=== PATIENT | male | born 1940 | race Caucasian/White ===

== ENCOUNTER 2017-05-07 07:11 | Emergency (ER) | payer MEDICARE, MEDICAID ==
[~2017-05-07] VITALS: Ht 157.5 cm; Wt 79.3 kg
[~2017-05-07 07:11] MED LIST: ADV50050 INHALATION; ALLO100T PO; ATOR40TA68 PO; CALC667C; COLC0.6T6 PO; FERR-49; LORA10CA; METO-319 PO; OLME1TAB37 PO; PANT40TA4 PO; PARI1CAP7; TAMS0.4C2 PO; ZALE5CAP PO
[2017-05-07 07:16] VITALS: Ht 157.5 cm; Wt 79.3 kg
--- NOTE | 2017-05-07 07:43 | ERD ---
ER Documentation Chief Complaint Chief Complaint reported melenas x 1 week, feels weak, due for dialysis today HPI This is a 76-year-old male with a past medical history of hypertension, hyperlipidemia, BPH, gout, GERD, anemia of chronic disease on iron pills chronically, end-stage renal disease on dialysis Saturday//Saturday who is presenting with new onset black stools and weakness for approximately 1 week. The patient reports that he is due for dialysis today, but he felt too weak to go this morning. The patient has had issues with anemia in the past. He reports that his hemoglobin has dropped to less than 5 in the past and has required transfusions. He did have a colonoscopy and EGD in the past several years ago that was reportedly negative for evaluation of his anemia. The patient does endorse mild congestion and a dry nonproductive cough. He thinks that it is just a cold. The patient denies fever or chills. The patient has had no headache or vision changes. The patient does not endorse neck or back pain. The patient denies lightheadedness or dizziness. The patient has had no chest pain or shortness of breath or trouble breathing. The patient denies nausea or vomiting. The patient denies abdominal pain or changes to bowel movements or urination. The patient has had no focal deficits. The patient has had no weakness or numbness or tingling to the face or extremities. ROS All systems reviewed and are negative except as per history of present illness. Medications Home Meds Reported Medications Multivit/Ca Carb/B Cmplx/Fa* (Lyly-Denisa*) 1 Tab Tab, 1 TAB PO DAILY, TAB 05/07/17 Trazodone Hcl* (Trazodone Hcl*) 50 Mg Tablet, 50 MG PO QHS, #30 TAB 05/07/17 Pantoprazole* (Pantoprazole*) 40 Mg Tablet.dr, 40 MG PO AC BREAKFAST, TAB 05/07/17 Colchicine* (Colcrys*) 0.6 Mg Tablet, 0.6 MG PO BID, TAB 05/07/17 Calcium Acetate* (Calcium Acetate*) 667 Mg Capsule, 667 MG PO WITH MEALS, #30 CAP 05/07/17 Clonazepam* (Clonazepam*) 0.5 Mg Tablet, 0.5 MG PO QHS, TAB 05/07/17 Metoprolol Succinate* (Toprol XL*) 50 Mg Tab.er.24h, 50 MG PO DAILY, #30 TAB 03/05/16 Cmwpqrfiok-Imurhvgcyu-ECPA (Tribenzor) 40-10-25 Mg Tablet, 1 TAB PO DAILY, TAB 03/05/16 Atorvastatin* (Atorvastatin*) 40 Mg Tablet, 40 MG PO QHS, #30 TAB 03/05/16 Tamsulosin Hcl* (Tamsulosin Hcl*) 0.4 Mg Cap.er.24h, 0.4 MG PO DAILY 09/18/13 Ferrous Sulfate* (Feosol*) 1 Tab Tablet, BID 09/18/13 Discontinued Reported Medications Salmeterol Xinaf-Fluticasone* (Advair*) 500/50 Diskus Inhaler, 1 INH INHALATION BID, #1 INHALER 03/05/16 Loratadine* (Claritin*) 10 Mg Capsule, PRN 09/18/13 Zaleplon (Zaleplon) 5 Mg Capsule, 5 PO QHS 09/18/13 Paricalcitol* (Zemplar*) 1 Mcg Cap, DAILY 09/18/13 Discontinued Scripts Pantoprazole* (Pantoprazole*) 40 Mg Tablet.dr, 40 MG PO BID for 30 Days, 3 Refills Prov:LEO TRIVEDI 03/09/16 Allopurinol* (Allopurinol*) 100 Mg Tablet, 100 MG PO DAILY for 30 Days, TAB 3 Refills Prov:LEO TRIVEDI 03/09/16 Colchicine* (Colcrys*) 0.6 Mg Tablet, 0.6 MG PO DAILY for 30 Days, TAB Prov:LEO TRIVEDI 03/09/16 Allergies Allergies: Coded Allergies: No Known Allergies (Verified Allergy, Unknown, 05/07/17) PMhx/Soc History of Surgery: No Anesthesia Reaction: No Hx Neurological Disorder: No Hx Respiratory Disorders: No Hx Cardiac Disorders: Yes (HTN, HLD) Hx Psychiatric Problems: No Hx Miscellaneous Medical Probl: Yes (CHRONIC ANEMIA, BPH, Gout, GERD, ESRD on HD) Hx Alcohol Use: No Hx Substance Use: No Hx Tobacco Use: No Smoking Status: Never smoker FmHx Family History: No coronary disease, No diabetes Physical Exam Vitals Vital Signs Date Time Temp Pulse Resp B/P Pulse Ox O2 Delivery O2 Flow Rate FiO2 05/07/17 08:57 73 19 131/52 99 Nasal Cannula 2.0 05/07/17 07:58 Nasal Cannula 2 05/07/17 07:16 97.9 75 18 136/75 98 Physical Exam Const: No apparent distress, well-developed, well-nourished Head: Normocephalic, Atraumatic Eyes: Normal Conjunctiva. Extraocular movements intact. Pupils equal, round and reactive to light ENT: Normal External Ears, Nose and Mouth. No conjunctival palor. Neck: Full range of motion. No meningismus. Resp: Clear to auscultation bilaterally, No wheezes, rales or rhonchi Cardio: Regular rate and rhythm. No murmurs, rubs or gallops Abd: Soft, non tender, non distended. Normal bowel sounds Rectal: Fish Filleter was present at all times during this physical exam. Dark brown stool. External Hemorrhoids. Skin: No petechiae or rashes. No palor. Back: No midline tenderness. No CVA tenderness Ext: No cyanosis, or edema Neur: Awake and alert, oriented 4. Cranial nerves intact. No facial droop. Normal strength, sensation and coordination. Psych: Normal Mood and Affect Result Diagram: 05/07/17 0757 05/07/17 0757 Results 24 hrs Laboratory Tests Test 05/07/17 07:57 05/07/17 08:30 White Blood Count 9.410^3/ul Red Blood Count 2.7110^6/ul Hemoglobin 8.1g/dl Hematocrit 26.1% Mean Corpuscular Volume 96.3fl Mean Corpuscular Hemoglobin 29.9pg Mean Corpuscular Hemoglobin Concent 31.0g/dl Red Cell Distribution Width 15.6% Platelet Count 79302^3/UL Mean Platelet Volume 10.5fl Neutrophils % 80.9% Lymphocytes % 11.1% Monocytes % 6.8% Eosinophils % 0.5% Basophils % 0.2% Nucleated Red Blood Cells % 0.0/100WBC Neutrophils # 7.610^3/ul Lymphocytes # 1.110^3/ul Monocytes # 0.610^3/ul Eosinophils # 0.110^3/ul Basophils # 0.010^3/ul Nucleated Red Blood Cells # 0.010^3/ul Prothrombin Time 14.1Sec Prothrombin Time Ratio 1.1 INR International Normalized Ratio 1.08 Activated Partial Thromboplast Time 49.6Sec Sodium Level 142mmol/L Potassium Level 5.7mmol/L Chloride Level 103mmol/L Carbon Dioxide Level 20mmol/L Anion Gap 25 Blood Urea Nitrogen 102mg/dl Creatinine 8.24mg/dl Glucose Level 112mg/dl Calcium Level 9.2mg/dl Total Bilirubin 0.2mg/dl Direct Bilirubin 0.00mg/dl Indirect Bilirubin 0.2mg/dl Aspartate Amino Transf (AST/SGOT) 26IU/L Alanine Aminotransferase (ALT/SGPT) 40IU/L Alkaline Phosphatase 159IU/L Troponin I 0.068ng/ml Total Protein 7.6g/dl Albumin 4.2g/dl Globulin 3.40g/dl Albumin/Globulin Ratio 1.23 Stool Occult Blood NEGATIVE Procedures/MDM MDM The patient's presentation warrants further investigation. The patient does have a history of anemia, and this will be checked. He does have symptoms consistent with an upper respiratory infection. Given the patient's end-stage renal disease, metabolic abnormalities will also be evaluated for. The patient does not have symptoms consistent with acute coronary syndrome. Patient does not have chest pain or shortness of breath. The patient does not have any medical findings concerning for pneumonia at this time. I do not feel that a chest x-ray is necessary at this time. LABS The patient's blood work was obtained and reviewed. The patient's CBC shows no leukocytosis. The patient is afebrile and does not appear systemically ill. I do not suspect a systemic infection. The patient has a normocytic anemia, likely anemia of chronic disease. The patient's hemoglobin today is 8.1. It was 8.4 when checked last week. This is not a significant difference. The patient's fecal occult blood test was negative. The patient's platelet count is unremarkable. The patient's CMP shows elevation in his BUN and creatinine. The patient is scheduled for dialysis today. His potassium is mildly elevated at 5.7. However, there are no findings on his EKG concerning for cardiac irritation. I am not concerned of hyperkalemia as the cause of his weakness. The patient has a mild metabolic acidosis, which does not need to be emergently treated. The patient's calcium is within normal limits, and I do not believe this is the cause of his symptoms today. The patient's troponin is within normal limits at 0.068. The patient's EKG does not show concerning signs of acute coronary syndrome. EKG EKG read by me: Rate/Rhythm: Regular rate and rhythm at a rate of 74 bpm Intervals: Normal [place]: Normal Impression: No evidence of ischemia or arrhythmia TREATMENT/DISPOSITION The patient's symptoms are consistent with a URI. That said, he does not have concerning an clinical findings for pneumonia. I have decreased suspicion for the flu. He is afebrile with unremarkable vital signs, which is reassuring. The patient's fatigue has been ongoing for approximately 1 week. Tamiflu would not be warranted in this situation. Even if the patient did have the flu, I would recommend symptomatic treatment. The patient's findings are not consistent with a GI bleed. The patient's fecal occult blood test is negative. The patient's hemoglobin is around where it was last week. The patient's stool is dark, but the patient does take iron. The patient does not have clinical findings of orthostasis. He does not have conjunctival pallor. He does not appear pale. This may be further evaluated as an outpatient. The patient does require dialysis today. His family called the dialysis center , who was able to reschedule him for later today. At this time, I feel that the patient stable for discharge. The patient will need follow-up with his primary care physician in 2-3 days. The patient will be given strict precautions with which to return to the emergency department. The patient's blood pressure was elevated at greater than 120/80 while in the emergency department. The patient was otherwise stable with no evidence of hypertensive urgency or emergency or end organ damage. The patient does not require admission for blood pressure control. I have discussed with the patient the risks of hypertension. I have advised the patient to follow up with the primary care physician for outpatient monitoring and treatment for hypertension in 2-3 days. I have instructed the patient to return to the ER for any new or worsening symptoms including chest pain, shortness of breath, headache, blurred vision, confusion, nausea, vomiting or LOC. Disclaimer: Inadvertent spelling and grammatical errors are likely due to EHR/ dictation software use and do not reflect on the overall quality of patient care. Note that the electronic time recorded on this note does not necessarily reflect the actual time of the patient encounter. Departure Diagnosis: Primary Impression: URI (upper respiratory infection) URI type: unspecified URI Qualified Code: J06.9 - Upper respiratory tract infection, unspecified type Additional Impressions: Anemia in chronic kidney disease Chronic kidney disease stage: on chronic dialysis Qualified Code: N18.6 - Anemia in chronic kidney disease, on chronic dialysis ESRD (end stage renal disease) Hyperkalemia Condition: IVORY Gonzales MD May 07, 2017 07:43
[2017-05-07 08:08] LABS: BASOPHILS % 0.2 % (0.0-2.0); EOSINOPHILS # 0.1 10^3/ul (0.0-0.5); EOSINOPHILS % 0.5 % (0.0-7.0); HEMATOCRIT 26.1 % (42.0-52.0); HEMOGLOBIN 8.1 g/dl (14.0-18.0); LYMPHOCYTES # 1.1 10^3/ul (0.8-2.9); LYMPHOCYTES % 11.1 % (15.0-51.0); MEAN CORPUSCULAR HEMOGLOBIN 29.9 pg (29.0-33.0); MEAN CORPUSCULAR VOLUME 96.3 fl (82.0-101.0); MEAN PLATELET VOLUME 10.5 fl (7.4-10.4); MONOCYTE # 0.6 10^3/ul (0.3-0.9); MONOCYTES % 6.8 % (0.0-11.0); NEUTROPHIL # 7.6 10^3/ul (1.6-7.5); NEUTROPHILS % 80.9 % (39.0-77.0); PLATELET COUNT 180 10^3/UL (140-415); RED BLOOD COUNT 2.71 10^6/ul (4.70-6.10); RED CELL DISTRIBUTION WIDTH 15.6 % (11.5-14.5); WHITE BLOOD COUNT 9.4 10^3/ul (4.8-10.8)
[2017-05-07 08:27] LABS: ALBUMIN 4.2 g/dl (3.3-4.9); ALBUMIN/GLOBULIN RATIO 1.23; BILIRUBIN,INDIRECT 0.2 mg/dl (0-1.1); BILIRUBIN,TOTAL 0.2 mg/dl (0.2-1.3); CALCIUM 9.2 mg/dl (8.4-10.2); CREATININE 8.24 mg/dl (0.61-1.24); POTASSIUM 5.7 mmol/L (3.5-5.1); TOTAL PROTEIN 7.6 g/dl (6.1-8.1)
[2017-05-07 08:29] LABS: INR 1.08; PROTIME 14.1 Sec (11.9-14.9); PT RATIO 1.1
[2017-05-07 08:30] LABS: PARTIAL THROMBOPLASTIN TIME 49.6 Sec (25.0-35.0)
[2017-05-07] MEDS ORDERED: CLON0.5T4 PO (08:35)
[2017-05-07] MEDS ORDERED: CALC667C PO (08:35)
[2017-05-07 08:39] LABS: TROPONIN-I 0.068 ng/ml (0.00-0.12)
[2017-05-07] MEDS ORDERED: COLC0.6T6 PO (08:44)
[2017-05-07] MEDS ORDERED: PANT40TA4 PO (08:45)
[2017-05-07] MEDS ORDERED: NEPH PO (08:47)
[2017-05-07] MEDS ORDERED: TRAZ50TA18 PO (08:47)
[2017-05-07 10:03] VITALS: BP 135/49; PULSE 71; RESP 22; TEMP 97.9
== END 2017-05-07 10:26 | disposition home or self-care (01) ==
LOC: E/R 07:11
DX: J06.9 Acute upper respiratory infection, unspecified (principal); E87.5 Hyperkalemia; I12.0 Hypertensive chronic kidney disease with stage 5 chronic kidney disease or end stage renal disease; N18.6 End stage renal disease; D63.1 Anemia in chronic kidney disease; Z99.2 Dependence on renal dialysis
CPT/HCPCS: 36415; 80053; 82270; 84484; 85025; 85610; 85730; 86850; 86900; 86901; 93005